=== PATIENT | male | born 1960 | race Caucasian/White ===

== ENCOUNTER 2022-12-17 10:05 | Emergency (ER) | payer BC, MEDICAID, OTHER ==
[~2022-12-17] VITALS: Ht 177.8 cm; Wt 93.2 kg
[~2022-12-17 10:05] MED LIST: ASPI-1009 PO; BUPR1TAB2 SL; BUSP15TA7 PO; LISI-232 PO; LOP25T PO; PANT40TA39 PO; POTA20PA40 PO; SERT-153 PO; TRAZ-89 PO
--- NOTE | 2022-12-17 11:07 | NUR ---
Patient went to the restroom then went out heading to the fast trak room. Patient was escorted back to his room. Patient was reminded not to leave ER. Patiet was given a warm blanket. He asked me about giving him a vodka and told patient we do not serve vodka to our patients
[2022-12-17 11:09] LABS: CLARITY,URINE CLEAR (Clear); COLOR,URINE YELLOW (Yellow); GLUCOSE, URINE NEGATIVE (Neg); KETONES,URINE NEGATIVE (Neg); LEUKOCYTE ESTERASE ,URINE NEGATIVE (Neg); NITRITES, URINE NEGATIVE (Neg); OCCULT BLOOD,URINE NEGATIVE (Neg); PROTEIN,URINE NEGATIVE (Neg); UROBILINOGEN,URINE 0.2 E.U/dL (0.2-1.0)
[2022-12-17 11:14] LABS: UA COLLECTION TYPE CLN CATCH MIDSTREAM
[2022-12-17 11:21] LABS: URINE AMPHETAMINE SCREEN NEGATIVE (Neg); URINE BARBITUATE SCREEN NEGATIVE (Neg); URINE BENZODIAZEPINES SCREEN NEGATIVE (Neg); URINE CANNABINOID SCREEN POSITIVE (Neg); URINE COCAINE SCREEN NEGATIVE (Neg); URINE METHADONE SCREEN NEGATIVE (Neg); URINE OPIATE SCREEN NEGATIVE (Neg); URINE PHENCYCLIDINE SCREEN NEGATIVE (Neg)
--- NOTE | 2022-12-17 11:32 | NUR ---
When I did the suicide screening questionaire with the patient, he denied suicidal thought. He told me he wanted to leave. I told him that he is currently on 5150 hold and that he will need to be be seen by a mental health clinician.
--- NOTE | 2022-12-17 12:05 | NUR ---
Pt ambulated independently to OF bed #25. Pt is tearful saying "I just want to home." Pt given a warm blanket and water.
--- NOTE | 2022-12-17 12:44 | NUR ---
Pt moved to ED Overflow Room 25. Pt observed fake crying on phone begging to be picked up or for "someone to come get him". When approached by the tech, Pt immediatly hung up the phone and demanded "What do you want". No evidence of crying or tears are present.
--- NOTE | 2022-12-17 13:02 | NUR ---
This sports writer advised pt that I will be documenting his belongings and placing them in our OF locker. Pt notified that his: shelly pablo w/ $303 gill, ID, insurance card, and numerous other debit/crdit cards will go to [facility] and be stored in our safe box. I also advised that we will need him to remove his gold chain necklace. It is a large and heavy necklace w/ a bigger madalion- Pt was brought in for suicidial statements so nurse advised the necklace should be removed and placed in safe w/ valuables. Pt comments back, "You guys will steal it. It's worth $25,000!" This sports writer advised it will not be stolen and it will be sealed in a bag in front of him, and then locked in a safe. Pt finally agreed to allowing admitting to come and retrieve his valuables. Addendum: 12/17/22 at 1346 by [employer] accidently charted on other [employer]'s login. This sports writer is who wrote the chart note pertaining to pt's belongings.
--- NOTE | 2022-12-17 13:47 | NUR ---
PT'S PACKET FAXED TO [facility] @7263 Pt is also asking to speak to mental health doc. Pt states he is "not suicidal and should not be here". Pt advised that he "had a bit too much alcohol this morning" and he never said anything about killing himself. He states that he would like to leave, go home and relax. Pt also advising, "There's no way I will be able to sleep here for the next 24 hours." Ski Molder advised Kuldip that pt wants to speak w/ him, faxed packet and Kuldip will speak w/ pt as soon as he is notified by [facility].
--- NOTE | 2022-12-17 14:20 | NUR ---
Pt's ex (Deann Alfonso) called wanting to know if and when pt is going to be discharged. She says "he is made at me because I called the police." "I didn't expect for five beam dyer to show up to the house."
--- NOTE | 2022-12-17 14:25 | NUR ---
[facility] clinician at bedside.
[2022-12-17 14:54] LABS: BASOPHILS # (AUTO) 0.1 X10'3 (0-0.2); BASOPHILS % (AUTO) 1.2 % (0-1); EOSINOPHILS # (AUTO) 0.2 X10'3 (0-0.9); EOSINOPHILS % (AUTO) 2.5 % (0-6); HEMATOCRIT 41.5 % (42.0-52.0); HEMOGLOBIN 13.8 g/dl (14.0-17.9); LYMPHOCYTES # (AUTO) 0.9 X10'3 (1.1-4.8); LYMPHOCYTES % (AUTO) 14.2 % (21-51); MEAN CORPUSCULAR HGB CONC 33.1 g/dL (33.0-36.5); MEAN CORPUSCULAR VOLUME 90.4 FL (78-98); MEAN PLATELET VOLUME 7.2 FL (7.4-10.4); MONOCYTES # (AUTO) 0.6 X10'3 (0-0.9); MONOCYTES % (AUTO) 8.6 % (2-12); NEUTROPHILS # (AUTO) 4.8 X10'3 (1.8-7.7); NEUTROPHILS % (AUTO) 73.5 % (42-75); PLATELET COUNT 185 X10'3 (140-440); RED BLOOD COUNT 4.59 X10'6 (4.70-6.10); RED CELL DISTRIBUTION WIDTH 14.3 % (11.5-14.5); WHITE BLOOD COUNT 6.5 X10'3 (4.5-11.0)
[2022-12-17 15:06] LABS: ALANINE AMINOTRANSFERASE 19 U/L (12-78); ALBUMIN 3.4 G/DL (3.4-5.0); ALBUMIN/GLOBULIN RATIO 1.3 (1.1-1.5); ALKALINE PHOSPHATASE 111 IU/L (46-116); ANION GAP 9 (8-16); ASPARTATE AMINO TRANSFERASE 25 U/L (10-37); BILIRUBIN,TOTAL 0.6 MG/DL (0.1-1.0); BLOOD UREA NITROGEN 10 MG/DL (7-18); BUN/CREATININE RATIO 12.2 (10.0-20.0); CHLORIDE 102 MMOL/L (99-107); CREATININE 0.82 MG/DL (0.60-1.10); GLUCOSE 106 MG/DL (70-104); POTASSIUM 3.9 MMOL/L (3.5-5.1); SODIUM 136 MMOL/L (135-145); TOTAL CARBON DIOXIDE 24.9 MMOL/L (24-32); TOTAL PROTEIN 6.1 G/DL (6.4-8.2); eGFR > 90 ML/MIN
[2022-12-17 15:18] LABS: ETHANOL 0.099 GM/DL (0.0-0.010)
--- NOTE | 2022-12-17 16:10 | NUR ---
DISCHARGE NOTE Patient left unit at 1610. Pt was picked up by his ex- Deann Alfonso. Pt was educated on how to access crisis services at [facility]. Pt relates "this mess, on alcohol." Pt was tearful when came to pick him up. "I think I will start back at ." Pt left with all personal belongings including his yellow chained necklace and wallet.
[2022-12-17 17:37] VITALS: BP 151/83; PULSE 106; RESP 18; TEMP 97.7; O2SAT 94
== END 2022-12-17 16:10 | disposition home or self-care (01) ==
LOC: ER 10:05
DX: R45.851 Suicidal ideations (principal); F10.14 Alcohol abuse with alcohol-induced mood disorder; Z20.822 Contact with and (suspected) exposure to COVID-19; Y90.9 Presence of alcohol in blood, level not specified; I10 Essential (primary) hypertension; G89.29 Other chronic pain; M54.59 Other low back pain; F41.9 Anxiety disorder, unspecified; Z79.899 Other long term (current) drug therapy; Z79.1 Long term (current) use of non-steroidal anti-inflammatories (NSAID); Z79.2 Long term (current) use of antibiotics
CPT/HCPCS: 36415; 80053; 80305; 80320; 81003; 84443; 85025; 87811; 99285